=== PATIENT | female | born 2000 | race Caucasian/White ===

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

== ENCOUNTER 2019-01-15 11:38 | Emergency (ER) | payer MEDICAID ==
[~2019-01-15] VITALS: Ht 162.6 cm; Wt 75.0 kg
[2019-01-15 15:28] VITALS: BP 127/81
== END 2019-01-15 15:33 | disposition home or self-care (01) ==
LOC: ER 11:38
DX: B08.4 Enteroviral vesicular stomatitis with exanthem (principal); F12.10 Cannabis abuse, uncomplicated
CPT/HCPCS: 99281